=== PATIENT | female | born 1970 | race Two or more races ===

== ENCOUNTER → 2018-05-04 | Emergency (ER) | payer OTHER ==
[~2018-05-04] VITALS: Ht 160 cm; Wt 88.5 kg
[~2018-05-04] MED LIST: AMBIEN10 MG; HYDROCHLOROTHIA25 MG; LEVSIN/SL0.125 MG SL; PHENERGAN25 MG PO; PROTONIX40 MG PO; [UNRECOGNIZED DRUG - REMARK]
== END | disposition home or self-care (01) ==
LOC: ER 22:15
DX: K29.70 Gastritis, unspecified, without bleeding (principal)

== ENCOUNTER 2018-07-14 10:38 | Outpatient (CLI) | payer OTHER | END 2018-07-14 10:44 | disposition home or self-care (01) | LOC: SONOGRAMA 10:38 → MAMO-SONO 10:45 | DX: R10.2 Pelvic and perineal pain (principal) ==

== ENCOUNTER 2018-07-29 13:51 | Outpatient (CLI) | payer OTHER | END 2018-07-29 13:58 | disposition home or self-care (01) | LOC: MAMO-SONO 13:51 | DX: Z12.31 Encounter for screening mammogram for malignant neoplasm of breast (principal); N64.89 Other specified disorders of breast ==

== ENCOUNTER 2019-07-28 08:02 | Outpatient (CLI) | payer OTHER | END 2019-07-28 08:07 | disposition home or self-care (01) | LOC: SONOGRAMA 08:02 | DX: R10.2 Pelvic and perineal pain (principal) ==

== ENCOUNTER 2019-08-04 14:37 | Outpatient (CLI) | payer OTHER | END 2019-08-04 14:47 | disposition home or self-care (01) | LOC: MAMO-SONO 14:37 | DX: N63.10 Unspecified lump in the right breast, unspecified quadrant (principal); N63.20 Unspecified lump in the left breast, unspecified quadrant ==

== ENCOUNTER 2021-08-31 11:55 | Outpatient (CLI) | payer OTHER | END 2021-08-31 12:05 | disposition home or self-care (01) | LOC: MAMO-SONO 11:55 | PROVIDERS: ATTEND Family Medicine | DX: N63.0 Unspecified lump in unspecified breast (principal); Z12.31 Encounter for screening mammogram for malignant neoplasm of breast ==

== ENCOUNTER 2022-10-15 13:00 | Outpatient (CLI) | payer OTHER | END 2022-10-15 13:02 | disposition home or self-care (01) | LOC: NUCLEAR 13:00 | PROVIDERS: ATTEND Family Medicine | DX: M81.0 Age-related osteoporosis without current pathological fracture (principal) ==

== ENCOUNTER 2022-10-15 13:41 | Outpatient (CLI) | payer OTHER | END 2022-10-15 13:49 | disposition home or self-care (01) | LOC: MAMO-SONO 13:41 | PROVIDERS: ATTEND Family Medicine | DX: Z12.31 Encounter for screening mammogram for malignant neoplasm of breast (principal) ==

== ENCOUNTER 2022-12-28 11:44 | Outpatient (CLI) | payer OTHER | END 2022-12-28 11:51 | disposition home or self-care (01) | LOC: SONOGRAMA 11:44 | PROVIDERS: ATTEND Family Medicine | DX: N18.2 Chronic kidney disease, stage 2 (mild) (principal); N20.0 Calculus of kidney ==

== ENCOUNTER 2023-10-23 12:37 | Outpatient (CLI) | payer OTHER | END 2023-10-23 13:34 | disposition home or self-care (01) | LOC: MAMO-SONO 12:37 | PROVIDERS: ATTEND Family Medicine | DX: N63 Unspecified lump in breast (principal); N60.21 Fibroadenosis of right breast; N60.22 Fibroadenosis of left breast; Z12.31 Encounter for screening mammogram for malignant neoplasm of breast ==

== ENCOUNTER 2024-05-15 14:00 | Outpatient (CLI) | payer OTHER | END 2024-05-15 14:12 | disposition home or self-care (01) | LOC: RAD 14:00 | PROVIDERS: ATTEND Otolaryngology Otolaryngology/Facial Plastic Surgery | DX: Z01.89 Encounter for other specified special examinations (principal) ==